=== PATIENT | female | born 1970 | race African-American/Black ===

== ENCOUNTER 2018-02-03 09:24 | Emergency (ER) | payer OTHER ==
[2018-02-03 10:26] LABS: NEGATIVE OBC STREP NEG; POSITIVE OBC STREP POS
== END 2018-02-03 11:00 | disposition home or self-care (01) ==
LOC: ER 11:00
DX: J02.8 Acute pharyngitis due to other specified organisms (principal); R51 Headache; E78.00 Pure hypercholesterolemia, unspecified; I10 Essential (primary) hypertension; E03.9 Hypothyroidism, unspecified; Z90.710 Acquired absence of both cervix and uterus; Z90.49 Acquired absence of other specified parts of digestive tract; Z88.1 Allergy status to other antibiotic agents
CPT/HCPCS: 87070; 87880; 99283

== ENCOUNTER → 2018-05-13 | Day surgery (SDC) | payer OTHER ==
[~2018-05-13] MED LIST: AMLO10TA6 PO; AMLO2.5T3 PO; AMOX1TAB11 PO; BENZ-8 PO; CRESTOR40 MG PO; DOXY100T PO; FAMO20TA5 PO; GUAI600T47 PO; IV RINGERS,LACTATED 1000ML 1,000 ML IV SCH; LABETALOL 20 MG/4 ML DISP.SYRIN. IVP ONE; LEVO25TA4 PO; LIDOCAINE 1% PF 2 ML VIAL. ID PRN; LISI-130 PO; LORA10TA68 PO; MIDAZOLAM HCL/PF 2 MG/2 ML VIAL. IV PRN; PRED20TA PO; PROPOFOL 20 ML IV ONE; PROPOFOL 40 ML IV ONE; RANI300C PO; TIZA4TAB PO; TOPI25TA52 PO; TRAM50TA PO; ZOLP5TAB PO; fentaNYL PF VIAL 100 MCG/2 ML VIAL IV PRN
[2018-05-13 08:01] VITALS: BP 152/78
--- NOTE | 2018-05-14 14:13 | PATHOLOGY ---
[facility] Accession Number: [id number] . 01 Material submitted: . BIOPSY DISTAL ESOPHAGUS . 01 Clinical history: . Bustos's esophagus, Hx change in bowel habits . 02 Diagnosis: Esophageal biopsies, distal esophagus: - Segments of hyperplastic squamous esophageal mucosa showing chronic inflammation, consistent with reflux esophagitis. (JPM:charlotte; 05/14/2018) QMS/05/14/2018 . 02 Comment: Sections of the distal esophageal biopsy reveal segments of tangentially oriented, hyperplastic squamous esophageal mucosa showing focal chronic inflammation with admixed eosinophils. The findings are consistent with reflux esophagitis. There is no evidence of Bustos's change, dysplasia, or malignancy. (JPM:charlotte; 05/14/2018) . 02 Electronically signed: . Wilder Estrada MD, Pathologist NPI- [id number] . 01 Gross description: . Received in formalin labeled "Karrie Sanchez, BX of esophagus, rule out dysplasia," are multiple segments of wilson soft tissue measuring 0.8 x 0.3 x 0.1 cm in aggregate dimensions. The specimen is filtered and entirely submitted in cassette A1. (TSD; 05/13/2018) TOB/TOB . 02 Pathologist provided ICD-10: K21.0 . 02 CPT . 251864 Specimen Comment: A courtesy copy of this report has been sent to Specimen Comment: [phone], . Specimen Comment: Report sent to / DR MAYES Specimen Comment: A duplicate report has been generated due to demographic updates. Performed at: [address], [place], [place] [id number] MD Abhilash De La Vega MD Phone: [phone] Performed at: 02 [facility] [address] [place] [id number] MD Wilder Estrada MD Phone: [phone]
== END | disposition home or self-care (01) ==
LOC: ENDOS 06:09
PROVIDERS: ATTEND Internal Medicine Gastroenterology
DX: K64.0 First degree hemorrhoids (principal); K22.70 Barrett's esophagus without dysplasia; G43.909 Migraine, unspecified, not intractable, without status migrainosus; I10 Essential (primary) hypertension; G47.30 Sleep apnea, unspecified; E03.9 Hypothyroidism, unspecified; F41.9 Anxiety disorder, unspecified; F32.9 Major depressive disorder, single episode, unspecified; M19.90 Unspecified osteoarthritis, unspecified site; K21.9 Gastro-esophageal reflux disease without esophagitis; Z80.8 Family history of malignant neoplasm of other organs or systems; Z80.1 Family history of malignant neoplasm of trachea, bronchus and lung; Z83.3 Family history of diabetes mellitus; Z82.49 Family history of ischemic heart disease and other diseases of the circulatory system; Z79.899 Other long term (current) drug therapy; Z90.49 Acquired absence of other specified parts of digestive tract; Z90.710 Acquired absence of both cervix and uterus; Z98.890 Other specified postprocedural states; Z98.51 Tubal ligation status; Z88.1 Allergy status to other antibiotic agents
CPT/HCPCS: 43239; 45378; 88305; J2704; J3490

== ENCOUNTER → 2018-05-27 | Outpatient (CLI) | payer OTHER ==
[2018-05-13 08:01] VITALS: BP 152/78
[~2018-05-27] MED LIST changes: -IV RINGERS,LACTATED 1000ML 1,000 ML IV SCH; -LABETALOL 20 MG/4 ML DISP.SYRIN. IVP ONE; -LIDOCAINE 1% PF 2 ML VIAL. ID PRN; -MIDAZOLAM HCL/PF 2 MG/2 ML VIAL. IV PRN; -PROPOFOL 20 ML IV ONE; -PROPOFOL 40 ML IV ONE; -fentaNYL PF VIAL 100 MCG/2 ML VIAL IV PRN
--- NOTE | 2018-05-27 10:08 | KCIC ---
Bilateral digital screening mammograms: Reason for examination: Routine screening. Comparison is made to previous study dated 10/13/2014. Interpretation was made with the benefit of CAD. The skin and nipples show no abnormalities. No abnormal axillary lymph nodes are seen. The breast parenchyma shows scattered fibroglandular density. (Breast density: Category B.) There are no dominant masses, suspicious calcifications or architectural distortions. Impression: No evidence of malignancy. Recommend routine screening. BI-RADS Category 1: Negative. "Our facility is accredited by the [employer] Mammography Program." This patient's information has been entered into a reminder system for the patient to be notified with the results of her examination and a target date for the next mammogram. Electronically signed by: Veronica Archer MD (05/27/2018 10:04 AM) [id number]
== END | disposition home or self-care (01) ==
LOC: KCIC MAMMO 09:02
PROVIDERS: ATTEND Family Medicine
DX: Z12.31 Encounter for screening mammogram for malignant neoplasm of breast (principal)
CPT/HCPCS: 77067

== ENCOUNTER → 2018-06-08 | Outpatient (CLI) | payer OTHER ==
[2018-05-13 08:01] VITALS: BP 152/78
--- NOTE | 2018-06-08 11:26 | KCIC ---
SMALL BOWEL SERIES History: Chronic generalized abdominal pain greater on the right Comparison: None. Findings: Small bowel examination was performed. Overall caliber of the small bowel is within normal limits. There was normal transit of the contrast through the small bowel, seen in the colon at about 90 minutes. On spot compression images, there is some persistent wall irregularity of the terminal ileum. Appendix is not visualized. Fluoroscopy time: 54 seconds, 3 images Impression: 1. There is some persistent wall irregularity of the terminal ileum, could be associated with terminal ileitis, less commonly mass. Electronically signed by: Eliel Barros MD (06/08/2018 11:22 AM) [facility]
== END | disposition home or self-care (01) ==
LOC: KCIC 08:34
PROVIDERS: ATTEND Internal Medicine Gastroenterology
DX: R10.84 Generalized abdominal pain (principal); G89.29 Other chronic pain
CPT/HCPCS: 74250

== ENCOUNTER 2020-01-10 11:13 | Emergency (ER) | payer OTHER ==
[~2020-01-10] VITALS: Ht 160 cm; Wt 131.8 kg
[~2020-01-10 11:13] MED LIST changes: -AMLO10TA6 PO; +AMLO10TA8 PO; -AMLO2.5T3 PO; +AMLO2.5T5 PO; -TIZA4TAB PO; +TIZA4TAB2 PO
[2020-01-10] MEDS ORDERED: KETOROLAC 15 MG/ML VIAL. IVP ONE (11:30)
[2020-01-10] MEDS ORDERED: ONDANSETRON PF 4 MG/2 ML VIAL. IVP ONE (11:30)
[2020-01-10] MEDS ORDERED: FAMOTIDINE 20 MG/2 ML VIAL IVP ONE (11:30)
[2020-01-10] MEDS ORDERED: IV NORMAL SALINE 1000ML BAG 1,000 ML IV ONE (11:30)
[2020-01-10 11:59] LABS: BASO # 0.1 x10^3/uL (0.0-0.2); BASO % 1 % (0-3); EOS # 0.1 x10^3/uL (0.0-0.7); EOS % 1 % (0-3); HEMATOCRIT 38.4 % (36.0-47.0); HEMOGLOBIN 13.1 g/dL (12.0-15.5); LYMPH # 1.8 x10^3/uL (1.0-4.8); LYMPH % 28 % (24-48); MEAN CORPUSCULAR HEMOGLOBIN 30 pg (25-35); MEAN CORPUSCULAR HGB CONC 34 g/dL (31-37); MEAN CORPUSCULAR VOLUME 89 fL (79-100); MONO # 0.6 x10^3/uL (0.0-1.1); MONO % 9 % (0-9); NEUT % 62 % (31-73); PLATELET COUNT 314 x10^3/uL (140-400); RED BLOOD COUNT 4.32 x10^6/uL (3.50-5.40); RED CELL DISTRIBUTION WIDTH 14.2 % (11.5-14.5); WHITE BLOOD COUNT 6.5 x10^3/uL (4.0-11.0)
[2020-01-10 12:01] LABS: BILIRUBIN,URINE NEGATIVE (NEG); CLARITY,URINE CLEAR; COLOR,URINE YELLOW; NITRITE,URINE NEGATIVE (NEG); PH,URINE 5.5 (<5.0-8.0); PROTEIN,URINE 30 mg/dL (NEG-TRACE)
--- NOTE | 2020-01-10 12:06 | EKG ---
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
[2020-01-10 12:09] LABS: BACTERIA,URINE MODERATE /HPF (0-FEW); SQUAMOUS EPITHELIAL CELL,UR MANY /LPF; WBC,URINE OCC /HPF (0-4)
[2020-01-10 12:10] LABS: RBC,URINE OCC /HPF (0-2)
[2020-01-10 12:11] LABS: PROTHROMBIN TIME PATIENT 12.2 SEC (11.7-14.0)
[2020-01-10 12:12] LABS: CALCIUM 8.7 mg/dL (8.5-10.1); CREATININE 1.2 mg/dL (0.6-1.0); GFR 57.3; POTASSIUM 3.7 mmol/L (3.5-5.1)
[2020-01-10 12:27] LABS: ALBUMIN 3.4 g/dL (3.4-5.0); ALBUMIN/GLOBULIN RATIO 0.8 (1.0-1.7); MAGNESIUM 1.5 mg/dL (1.8-2.4); TOTAL BILIRUBIN 0.3 mg/dL (0.2-1.0); TOTAL PROTEIN 7.9 g/dL (6.4-8.2)
[2020-01-10 12:28] LABS: CREATINE KINASE 125 U/L (26-192)
--- NOTE | 2020-01-10 12:28 | PHYS DOC ---
Past Medical History Past Medical History: Arthritis, GERD, High Cholesterol, Hypertension, Hypothyroid, Migraines, Pneumonia, Other Past Surgical History: Cholecystectomy, , Hysterectomy, Other Additional Past Surgical Histo: bladder;rectum;L ankle,BLADDER LIFT,CYST REMOVED ANKLE/EAR Smoking Status: Never Smoker Alcohol Use: Occasionally Drug Use: None General Adult EDM: Chief Complaint: ABDOMINAL PAIN HPI: HPI: Patient is a 49 year old female presents with report of right lower quadrant abdominal pain that awoke patient this morning. Patient denies associated nausea, vomiting, diarrhea. Denies flank pain, hematuria, or dysuria. Denies trauma. Reports has gone through menopause. Denies fever or chills. Denies rash. Review of Systems: Review of Systems: Constitutional: Denies fever or chills Eyes: Denies redness or eye pain HENT: Denies nasal congestion or sore throat Respiratory: Denies cough or shortness of breath Cardiovascular: Denies chest pain or palpitations GI: Reports right lower quadrant abdominal pain; denies nausea or vomiting : Denies dysuria or hematuria Musculoskeletal: Denies back pain or joint pain Integument: Denies rash or skin lesions Neurologic: Denies headache, focal weakness or sensory changes Complete systems were reviewed and found to be within normal limits, except as documented in this note. Current Medications: Current Medications Medications (Trade) Dose Ordered Sig/Maged Start Time Stop Time Status Last Admin Dose Admin Famotidine (Pepcid Vial) 20 mg 1X ONCE 01/10/20 11:30 01/10/20 11:32 DC 01/10/20 11:55 20 MG Fentanyl Citrate (Fentanyl 2ml Vial) 50 mcg 1X ONCE 01/10/20 12:30 01/10/20 12:31 UNV Ketorolac Tromethamine (Toradol 15mg Vial) 15 mg 1X ONCE 01/10/20 11:30 01/10/20 11:32 DC 01/10/20 11:55 15 MG Ondansetron HCl (Zofran) 4 mg 1X ONCE 01/10/20 11:30 01/10/20 11:32 DC 01/10/20 11:55 4 MG Sodium Chloride 1,000 ml @ 1,000 mls/hr 1X ONCE 01/10/20 11:30 01/10/20 12:29 01/10/20 11:55 1,000 MLS/HR Allergies: Allergies: Allergies Coded Allergies Type Severity Reaction Last Updated Verified ciprofloxacin Allergy Severe Rash 05/13/18 No Physical Exam: PE: Constitutional: Well developed, well nourished, no acute distress, non-toxic appearance HENT: Normocephalic, atraumatic Eyes: Conjunctiva normal, no discharge Neck: Normal range of motion, no tenderness, supple Lungs & Thorax: No respiratory distress, equal chest rise and fall Abdomen: Soft, RLQ tenderness, no guarding/distention/rebound tenderness Skin: Warm, dry, no erythema, no rash Back: No tenderness, no CVA tenderness Extremities: No tenderness, ROM intact, no edema Neurologic: Alert and oriented X 3, no focal deficits noted Psychologic: Affect normal, judgment normal Current Patient Data: Labs: Laboratory Tests Test 01/10/20 11:46 White Blood Count 6.5 x10^3/uL (4.0-11.0) Red Blood Count 4.32 x10^6/uL (3.50-5.40) Hemoglobin 13.1 g/dL (12.0-15.5) Hematocrit 38.4 % (36.0-47.0) Mean Corpuscular Volume 89 fL (79-100) Mean Corpuscular Hemoglobin 30 pg (25-35) Mean Corpuscular Hemoglobin Concent 34 g/dL (31-37) Red Cell Distribution Width 14.2 % (11.5-14.5) Platelet Count 314 x10^3/uL (140-400) Neutrophils (%) (Auto) 62 % (31-73) Lymphocytes (%) (Auto) 28 % (24-48) Monocytes (%) (Auto) 9 % (0-9) Eosinophils (%) (Auto) 1 % (0-3) Basophils (%) (Auto) 1 % (0-3) Neutrophils # (Auto) 4.0 x10^3/uL (1.8-7.7) Lymphocytes # (Auto) 1.8 x10^3/uL (1.0-4.8) Monocytes # (Auto) 0.6 x10^3/uL (0.0-1.1) Eosinophils # (Auto) 0.1 x10^3/uL (0.0-0.7) Basophils # (Auto) 0.1 x10^3/uL (0.0-0.2) Prothrombin Time 12.2 SEC (11.7-14.0) Prothrombin Time INR 0.9 (0.8-1.1) Activated Partial Thromboplast Time 29 SEC (24-38) Urine Collection Type Unknown Urine Color Yellow Urine Clarity Clear Urine pH 5.5 (<5.0-8.0) Urine Specific [place] 1.020 (1.000-1.030) Urine Protein 30 mg/dL (NEG-TRACE) Urine Glucose (UA) Negative mg/dL (NEG) Urine Ketones (Stick) Trace mg/dL (NEG) Urine Blood Trace (NEG) Urine Nitrite Negative (NEG) Urine Bilirubin Negative (NEG) Urine Urobilinogen Dipstick 1.0 mg/dL (0.2 mg/dL) Urine Leukocyte Esterase Negative (NEG) Urine RBC Occ /HPF (0-2) Urine WBC Occ /HPF (0-4) Urine Squamous Epithelial Cells Many /LPF Urine Bacteria Moderate /HPF (0-FEW) Sodium Level 139 mmol/L (136-145) Potassium Level 3.7 mmol/L (3.5-5.1) Chloride Level 104 mmol/L (98-107) Carbon Dioxide Level 24 mmol/L (21-32) Anion Gap 11 (6-14) Blood Urea Nitrogen 12 mg/dL (7-20) Creatinine 1.2 mg/dL (0.6-1.0) H Estimated GFR (Cockcroft-Gault) 57.3 BUN/Creatinine Ratio 10 (6-20) Glucose Level 117 mg/dL (70-99) H Calcium Level 8.7 mg/dL (8.5-10.1) Magnesium Level Pending Total Bilirubin Pending Aspartate Amino Transferase (AST) Pending Alanine Aminotransferase (ALT) Pending Alkaline Phosphatase Pending Troponin I Quantitative < 0.017 ng/mL (0.000-0.055) Total Protein Pending Albumin Pending Albumin/Globulin Ratio Pending Lipase Pending Laboratory Tests 01/10/20 11:46 Laboratory Tests 01/10/20 11:46 Vital Signs: Vital Signs Date Time Temp Pulse Resp B/P (MAP) Pulse Ox O2 Delivery O2 Flow Rate FiO2 01/10/20 11:17 98.9 94 19 209/104 (139) 98 Room Air 98.9 EKG: EKG: @1125 NSR at 95bpm, NO ST elevation, QRS 92ms, QT/QTc 356/451ms Radiology/Procedures: Radiology/Procedures: PROCEDURE: CT ABD PELV W/ IV CONTRST ONLY CT abdomen pelvis with contrast. HISTORY: Right lower quadrant abdominal pain CT abdomen and pelvis CT scan the abdomen pelvis was done using 60 mL Omnipaque 300 contrast. There is mild atelectasis in the lung bases without other infiltrates. There is no effusion. There is diffuse fatty change in the liver. Patient's had a cholecystectomy. Spleen and adrenal glands are normal. Pancreas is normal. There is no mass or hydronephrosis in the kidneys. There is no retroperitoneal adenopathy. There is moderate stool in the colon. There is no free air. There is no free fluid. Appendix is normal. Patient's had a hysterectomy. There is no bowel obstruction. There is mild facet arthritis in the lumbar spine. There is no spinal stenosis. IMPRESSION: 1. Normal appendix. 2. Diffuse fatty change in the liver. 3. No bowel obstruction. 4. No other acute finding in the abdomen or pelvis. PQRS Compliance Statement: One or more of the following individualized dose reduction techniques were utilized for this examination: 1. Automated exposure control 2. Adjustment of the mA and/or kV according to patient size 3. Use of iterative reconstruction technique Electronically signed by: Jeremy Alves MD (01/10/2020 12:51 PM) [id number] Course & Med Decision Making: Course & Med Decision Making Pertinent Labs and Imaging studies reviewed. (See chart for details) Patient presents with right lower quadrant abdominal pain that awoke her from sleep this morning. No other associated symptoms reported. Abdomen non- peritoneal. Patient does have some tenderness to right lower quadrant. Patient noted to have elevated blood pressure. Patient reports she forgot to take her medication for her blood pressure this morning. Pain addressed. IV fluid hydration given. Labs obtained and posted to chart. EKG stable. CT abdomen/pelvis without acute process. Patient stable for discharge with outpatient follow-up with PCP/GI. GI referral provided. Discussed findings and plan with patient, who acknowledges und erstanding and agreement. Amanda Disclaimer: Amanda Disclaimer: This electronic medical record was generated, in whole or in part, using a voice recognition dictation system. Departure Departure Impression: Primary Impression: Abdominal pain Qualified Codes: R10.31 - Right lower quadrant pain Additional Impressions: Hypomagnesemia Hypertension Qualified Codes: I10 - Essential (primary) hypertension Disposition: 01 HOME, SELF-CARE Condition: STABLE Referrals: CINTIA MAYES MD (PCP) PRUDENCIO MCCALLUM MD Patient Instructions: Abdominal Pain (Nonspecific), Hypertension, [id number], Hypomagnesemia Scripts Hyoscyamine Sulfate (LEVSIN-SL) 0.125 Mg Tab.subl 0.125 MG SL Q4-6HRS PRN for PAIN, #14 TAB Prov: CINTIA BURROUGHS DO 01/10/20 Famotidine (PEPCID) 20 Mg Tablet 20 MG PO BID for 5 Days, #10 TAB Prov: CINTIA BURROUGHS DO 01/10/20 Ondansetron (ONDANSETRON ODT) 4 Mg Tab.rapdis 1 TAB PO PRN Q6-8HRS PRN for NAUSEA, #16 TAB Prov: CINTIA BURROUGHS DO 01/10/20 Justicifation of Admission Dx: Justifications for Admission: Justification of Admission Dx: N/A CINTIA BURROUGHS DO Jan 10, 2020 12:28
[2020-01-10] MEDS ORDERED: fentaNYL PF VIAL 100 MCG/2 ML VIAL IVP ONE (12:30)
[2020-01-10] MEDS ORDERED: IOHEXOL 300 MG/ML 100ML VIAL. IV ONE (12:30)
[2020-01-10] MEDS ORDERED: CONTRAST GIVEN. MC PRN (12:30)
[2020-01-10] MEDS ORDERED: LABETALOL 20 MG/4 ML DISP.SYRIN. IVP ONE (12:45)
--- NOTE | 2020-01-10 12:54 | RAD ---
CT abdomen pelvis with contrast. HISTORY: Right lower quadrant abdominal pain CT abdomen and pelvis CT scan the abdomen pelvis was done using 60 mL Omnipaque 300 contrast. There is mild atelectasis in the lung bases without other infiltrates. There is no effusion. There is diffuse fatty change in the liver. Patient's had a cholecystectomy. Spleen and adrenal glands are normal. Pancreas is normal. There is no mass or hydronephrosis in the kidneys. There is no retroperitoneal adenopathy. There is moderate stool in the colon. There is no free air. There is no free fluid. Appendix is normal. Patient's had a hysterectomy. There is no bowel obstruction. There is mild facet arthritis in the lumbar spine. There is no spinal stenosis. IMPRESSION: 1. Normal appendix. 2. Diffuse fatty change in the liver. 3. No bowel obstruction. 4. No other acute finding in the abdomen or pelvis. PQRS Compliance Statement: One or more of the following individualized dose reduction techniques were utilized for this examination: 1. Automated exposure control 2. Adjustment of the mA and/or kV according to patient size 3. Use of iterative reconstruction technique Electronically signed by: Jeremy Alves MD (01/10/2020 12:51 PM) [id number]
[2020-01-10] MEDS ORDERED: ONDA4TAB12 PO (13:29)
[2020-01-10] MEDS ORDERED: FAMO-63 PO (13:29)
[2020-01-10] MEDS ORDERED: HYOS0.1265 SL (13:29)
[2020-01-10 13:43] VITALS: BP 191/91
[2020-01-10] MEDS ORDERED: MAGNESIUM CHLORIDE ER 64 MG TABLET.ER PO ONE (14:00)
== END 2020-01-10 13:51 | disposition home or self-care (01) ==
LOC: ER 11:13
DX: I10 Essential (primary) hypertension (principal); R10.31 Right lower quadrant pain; E83.42 Hypomagnesemia; M19.90 Unspecified osteoarthritis, unspecified site; K21.9 Gastro-esophageal reflux disease without esophagitis; E78.00 Pure hypercholesterolemia, unspecified; E03.9 Hypothyroidism, unspecified; G43.909 Migraine, unspecified, not intractable, without status migrainosus; Z90.49 Acquired absence of other specified parts of digestive tract; Z90.710 Acquired absence of both cervix and uterus; Z98.890 Other specified postprocedural states
CPT/HCPCS: 36415; 74177; 80053; 81001; 82553; 83690; 83735; 84484; 85025; 85610; 85730; 87086; 93005; 96374; 96375; 99285; J1885; J2405; J3010; J3490; J7030; Q9967

== ENCOUNTER 2021-02-16 13:36 | Emergency (ER) | payer OTHER ==
[~2021-02-16] VITALS: Ht 167.6 cm; Wt 150.0 kg
[~2021-02-16 13:36] MED LIST changes: +AMLO-187 PO; -AMLO10TA8 PO; +FAMO-63 PO; +HYOS0.1265 SL; +ONDA4TAB12 PO
[2021-02-16] MEDS ORDERED: KETOROLAC 30 MG/ML VIAL. IVP ONE (15:00)
[2021-02-16] MEDS ORDERED: CYCLOBENZAPRINE 10 MG TABLET. PO ONE (15:00)
[2021-02-16 15:06] LABS: BASO # 0.1 x10^3/uL (0.0-0.2); BASO % 1 % (0-3); EOS # 0.1 x10^3/uL (0.0-0.7); EOS % 1 % (0-3); HEMATOCRIT 40.3 % (36.0-47.0); HEMOGLOBIN 13.7 g/dL (12.0-15.5); LYMPH # 1.5 x10^3/uL (1.0-4.8); LYMPH % 17 % (24-48); MEAN CORPUSCULAR HEMOGLOBIN 31 pg (25-35); MEAN CORPUSCULAR HGB CONC 34 g/dL (31-37); MEAN CORPUSCULAR VOLUME 90 fL (79-100); MONO # 0.6 x10^3/uL (0.0-1.1); MONO % 7 % (0-9); NEUT # 6.6 x10^3/uL (1.8-7.7); NEUT % 74 % (31-73); PLATELET COUNT 302 x10^3/uL (140-400); RED BLOOD COUNT 4.49 x10^6/uL (3.50-5.40); RED CELL DISTRIBUTION WIDTH 13.7 % (11.5-14.5)
--- NOTE | 2021-02-16 15:10 | RAD ---
Single AP view of the chest. Comparison: 02/15/2018. Indication: Chest pain Findings: The heart is not enlarged. There is no pneumothorax or effusion. No air space or interstitial diseas e. Impression: 1. No acute cardiopulmonary process. Electronically signed by: Kg Soria MD (02/16/2021 3:07 PM) [facility]
[2021-02-16 15:24] LABS: CALCIUM 9.3 mg/dL (8.5-10.1); CREATININE 1.1 mg/dL (0.6-1.0); GFR 63.1; POTASSIUM 4.1 mmol/L (3.5-5.1)
[2021-02-16 15:30] LABS: ALBUMIN 3.4 g/dL (3.4-5.0); ALBUMIN/GLOBULIN RATIO 0.8 (1.0-1.7); MAGNESIUM 1.9 mg/dL (1.8-2.4); PHOSPHORUS 2.4 mg/dL (2.6-4.7); TOTAL BILIRUBIN 0.6 mg/dL (0.2-1.0); TOTAL PROTEIN 7.9 g/dL (6.4-8.2)
--- NOTE | 2021-02-16 15:36 | EKG ---
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
[2021-02-16 20:13] LABS: BILIRUBIN,URINE NEGATIVE (NEG); CLARITY,URINE CLEAR; COLOR,URINE YELLOW; NITRITE,URINE NEGATIVE (NEG); PROTEIN,URINE NEGATIVE (NEG-TRACE); UROBILINOGEN,URINE 0.2 mg/dL (0.2 mg/dL)
[2021-02-16 20:20] LABS: BACTERIA,URINE MANY /HPF (0-FEW); RBC,URINE 0 /HPF (0-2)
[2021-02-16 21:02] VITALS: BP 157/75
--- NOTE | 2021-02-16 21:11 | PHYS DOC ---
Past Medical History Past Medical History: Arthritis, GERD, High Cholesterol, Hypertension, Hypothyroid, Migraines, Pneumonia, Other Additional Past Medical Histor: pt not taking meds for yrs-On02/03/18 since last ED visit pt. (CINTIA CHRISTIANSON APRN) Past Surgical History: Cholecystectomy, , Hysterectomy, Other Additional Past Surgical Histo: bladder;rectum;L ankle,BLADDER LIFT,CYST REMOVED ANKLE/EAR (CINTIA CHRISTIANSON APRN) Smoking Status: Never Smoker Alcohol Use: Occasionally Drug Use: None (CINTIA CHRISTIANSON APRN) General Adult EDM: Chief Complaint: SHORTNESS OF BREATH HPI: HPI: Patient is a 50 year old female presents to the emergency department complaining of chest pain or shortness of breath that has been going on for the past 5 weeks. Patient states she has been taking muscle relaxers prescribed to her by Dr. Butler, patient states she is supposed to take medications for hypertension and type 2 diabetes but has not stating that she just does not feel like taking those medications. Patient reports her last menstrual cycle was last with normal directional flow. Reports an allergy to Cipro. Denies nausea, vomiting, diarrhea, abdominal pain, urinary tract infection type signs and symptoms, denies vaginal discharge, pelvic pain, or STI concerns. Patient denies increased thirst or increased urination, denies rashes to her skin, denies recent fever or chills. Denies any other physical complaints or physical concerns. (CINTIA CHRISTIANSON APRN) Review of Systems: Review of Systems: 14 body systems of review of systems have been reviewed. See HPI for pertinent positives and negative responses, otherwise all other systems are negative, nonpertinent or noncontributory. Constitutional: Negative except as outlined in HPI above. Skin: Negative except as outlined in HPI above. Eyes: Negative except as outlined in HPI above. HENT: Negative except as outlined in HPI above. Respiratory: Negative except as outlined in HPI above. Cardiovascular: Negative except as outlined in HPI above. GI: Negative except as outlined in HPI above. : Negative except as outlined in HPI above. Musculoskeletal: Negative except as outlined in HPI above. Integument: Negative except as outlined in HPI above. Neurologic: Negative except as outlined in HPI above. Endocrine: Negative except as outlined in HPI above. Lymphatic: Negative except as outlined in HPI above. Psychiatric: Negative except as outlined in HPI above. (CINTIA CHRISTIANSON APRN) Heart Score: C/O Chest Pain: Yes HEART Score for Chest Pain: HEART Score for Chest Pain Response (Comments) Value History Slighlty/Non-Suspicious 0 ECG Normal 0 Age >45 - < 65 1 Risk Factors 1 or 2 Risk Factors 1 Troponin < Normal Limit 0 Total 2 Risk Factors: Risk Factors: DM, Current or recent (<one month) smoker, HTN, HLP, family history of CAD, obesity. Risk Scores: Score 0 - 3: 2.5% MACE over next 6 weeks - Discharge Home Score 4 - 6: 20.3% MACE over next 6 weeks - Admit for Clinical Observation Score 7 - 10: 72.7% MACE over next 6 weeks - Early Invasive Strategies (CINTIA CHRISTIANSON APRN) Current Medications: Current Medications Medications (Trade) Dose Ordered Sig/Maged Start Time Stop Time Status Last Admin Dose Admin Cyclobenzaprine HCl (Flexeril) 10 mg 1X ONCE 02/16/21 15:00 02/16/21 15:01 DC 02/16/21 15:51 10 MG Ketorolac Tromethamine (Toradol 30mg Vial) 30 mg 1X ONCE 02/16/21 15:00 02/16/21 15:01 DC 02/16/21 15:52 30 MG (CINTIA CHRISTIANSON APRN) Allergies: Allergies: Allergies Coded Allergies Type Severity Reaction Last Updated Verified ciprofloxacin Allergy Severe Rash 05/13/18 No (CINTIA CHRISTIANSON APRN) Physical Exam: PE: Constitutional: Well developed, well nourished, no acute distress, non-toxic appearance. 50-year-old female in no apparent distress. HENT: Normocephalic, atraumatic. Eyes: Conjunctiva normal, no discharge. Neck: Normal range of motion, no stridor. Cardiovascular: No cyanosis appreciated, distal cap refill less than 2 seconds. Heart sounds S1-S2 to auscultation, regular rate and rhythm. No murmur appreciated, PMI to the right. Lungs & Thorax: Patient is in no respiratory distress, no audible adventitious lung sounds appreciated. No pain to palpation of the anterior thorax, lung sounds clear to auscultation all lung wise. Abdomen: Nontender, no abnormalities noted. Skin: Warm, dry, no erythema, no rash. Back: No tenderness, no deformities. Extremities: No tenderness, no cyanosis, no clubbing, ROM intact, no edema. Neurologic: Alert and oriented X 3, normal motor function, normal sensory function, no focal deficits noted. Psychologic: Affect normal, judgement normal, mood normal. (CINTIA CHRISTIANSON APRN) Current Patient Data: Labs: Laboratory Tests Test 02/16/21 14:55 02/16/21 19:50 White Blood Count 9.0 x10^3/uL (4.0-11.0) Red Blood Count 4.49 x10^6/uL (3.50-5.40) Hemoglobin 13.7 g/dL (12.0-15.5) Hematocrit 40.3 % (36.0-47.0) Mean Corpuscular Volume 90 fL (79-100) Mean Corpuscular Hemoglobin 31 pg (25-35) Mean Corpuscular Hemoglobin Concent 34 g/dL (31-37) Red Cell Distribution Width 13.7 % (11.5-14.5) Platelet Count 302 x10^3/uL (140-400) Neutrophils (%) (Auto) 74 % (31-73) H Lymphocytes (%) (Auto) 17 % (24-48) L Monocytes (%) (Auto) 7 % (0-9) Eosinophils (%) (Auto) 1 % (0-3) Basophils (%) (Auto) 1 % (0-3) Neutrophils # (Auto) 6.6 x10^3/uL (1.8-7.7) Lymphocytes # (Auto) 1.5 x10^3/uL (1.0-4.8) Monocytes # (Auto) 0.6 x10^3/uL (0.0-1.1) Eosinophils # (Auto) 0.1 x10^3/uL (0.0-0.7) Basophils # (Auto) 0.1 x10^3/uL (0.0-0.2) Sodium Level 139 mmol/L (136-145) Potassium Level 4.1 mmol/L (3.5-5.1) Chloride Level 105 mmol/L (98-107) Carbon Dioxide Level 25 mmol/L (21-32) Anion Gap 9 (6-14) Blood Urea Nitrogen 15 mg/dL (7-20) Creatinine 1.1 mg/dL (0.6-1.0) H Estimated GFR (Cockcroft-Gault) 63.1 BUN/Creatinine Ratio 14 (6-20) Glucose Level 100 mg/dL (70-99) H Calcium Level 9.3 mg/dL (8.5-10.1) Phosphorus Level 2.4 mg/dL (2.6-4.7) L Magnesium Level 1.9 mg/dL (1.8-2.4) Total Bilirubin 0.6 mg/dL (0.2-1.0) Aspartate Amino Transferase (AST) 27 U/L (15-37) Alanine Aminotransferase (ALT) 33 U/L (14-59) Alkaline Phosphatase 91 U/L (46-116) Troponin I Quantitative < 0.017 ng/mL (0.000-0.055) Total Protein 7.9 g/dL (6.4-8.2) Albumin 3.4 g/dL (3.4-5.0) Albumin/Globulin Ratio 0.8 (1.0-1.7) L Urine Collection Type Unknown Urine Color Yellow Urine Clarity Clear Urine pH 6.0 (<5.0-8.0) Urine Specific [place] 1.015 (1.000-1.030) Urine Protein Negative mg/dL (NEG-TRACE) Urine Glucose (UA) Negative mg/dL (NEG) Urine Ketones (Stick) Trace mg/dL (NEG) Urine Blood Negative (NEG) Urine Nitrite Negative (NEG) Urine Bilirubin Negative (NEG) Urine Urobilinogen Dipstick 0.2 mg/dL (0.2 mg/dL) Urine Leukocyte Esterase Small (NEG) Urine RBC 0 /HPF (0-2) Urine WBC 5-10 /HPF (0-4) Urine Squamous Epithelial Cells Many /LPF Urine Bacteria Many /HPF (0-FEW) Urine Mucus Mod /LPF Laboratory Tests 02/16/21 14:55 Laboratory Tests 02/16/21 14:55 Vital Signs: Vital Signs Date Time Temp Pulse Resp B/P (MAP) Pulse Ox O2 Delivery O2 Flow Rate FiO2 02/16/21 18:02 85 20 176/85 (115) 100 Room Air 02/16/21 14:42 98.5 98.5 (CINTIA CHRISTIANSON APRN) EKG: EKG: EKG performed at 1431 by ED nursing staff shows a normal sinus rhythm without other ectopy heart rate 92 bpm, [place] interval 0.164, QTc interval 0.448, no acute STEMI, no ischemia appreciated, no ACS, EKG interpreted by ED attending physician Dr. Mckinney. (CINTIA CHRISTIANSON APRN) Radiology/Procedures: Radiology/Procedures: PATIENT: MANUEL BHARDWAJ ACCOUNT: [id number] : 1970 LOCATION: ER AGE: 50 SEX: F EXAM STATUS: PRE ER ORD. PHYSICIAN: CINTIA CHRISTIANSON APRN REASON: CHEST PAIN PROCEDURE: CHEST AP ONLY Single AP view of the chest. Comparison: 02/15/2018. Indication: Chest pain Findings: The heart is not enlarged. There is no pneumothorax or effusion. No air space or interstitial disease. Impression: 1. No acute cardiopulmonary process. Electronically signed by: Kg Soria MD (02/16/2021 3:07 PM) [facility] DICTATED and SIGNED BY: KG SORIA MD DATE: 02/16/21 [id number] 0 (CINTIA CHRISTIANSON APRN) Course & Med Decision Making: Course & Med Decision Making Pertinent Labs and Imaging studies reviewed. (See chart for details) 50-year-old female, vital signs reviewed, presents emergency department chief complaint of chest pain or shortness of breath for the past 5 weeks. Physical examination nonconcerning, symptoms may be related to patient's noncompliance of hypertension and type 2 diabetes medications. Will order cardiopulmonary work- up. The patient's urine was not infected, did have leukocyte esterase however most likely contaminated related to many squamous epithelia, no white blood cells, no red blood cells. The patient was not . The patient's chest x-ray unremarkable, HEART score of 2. The patient's lab work unremarkable. Upon reexamination of the patient, the patient remains nontoxic in appearance and in no apparent distress. The patient states she no longer has chest pain or shortness of breath. Discussed findings with patient and need for follow-up with primary care for ongoing symptoms. Discussed with patient need to continue her blood pressure and type 2 diabetes regimen. Discussed with the patient all findings and diagnostic testing as well as the need to follow-up with their primary care provider for further evaluation and treatment or return to the ED if any new or worsening symptoms. Strict return precautions were also discussed at length, the patient voiced understanding and agreement with the discharge planning. The patient was nontoxic in appearance, in no apparent distress, and hemodynamically stable at the time of disposition. (CINTIA CHRISTIANSON APRN) Dragon Disclaimer: Dragon Disclaimer: This electronic medical record was generated, in whole or in part, using a voice recognition dictation system. (CINTIA CHRISTIANSON APRN) Departure Departure Impression: Primary Impression: Shortness of breath Additional Impression: Chest pain of unknown etiology Disposition: HOME / SELF CARE / HOMELESS Condition: GOOD Referrals: CINTIA BUTLER MD (PCP) Patient Instructions: Chest Pain (Nonspecific), Shortness of Breath Additional Instructions: You were seen today in the emergency department for chest pain and shortness of breath. An extensive cardiorespiratory work-up was performed today in the emergency department. There were no concerning findings. Your chest x-ray was within normal limits. Your EKG did not show any concerning findings. However, this does not mean nothing is wrong. As we discussed, please follow-up with your primary care physician this Friday for ongoing assessment and treatment for your chest pains and shortness of breath. You had indicated that you do not take your high blood pressure and type 2 diabetes medications at home as you should. This can cause lifelong physical problems that may become irreversible. I urged you to discuss with your primary care physician your options for treatment. Thank you for visiting our Emergency Department. It was a pleasure taking care of you today in the emergency department and we appreciate you trusting us with your care. If any additional problems come up don't hesitate to return to visit us. Please follow up with your primary care provider so they can plan additional care if needed and know about the problem that you had. If symptoms worsen come back to the Emergency Department. Any concerning symptoms that start such as chest pain, shortness of air, weakness or numbness on one side of the body, running high fevers or any other concerning symptoms return to the ER. EMERGENCY DEPARTMENT GENERAL DISCHARGE INSTRUCTIONS Thank you for coming to [facility] Emergency Department (ED) today and trusting us with you care. We trust that you had a positive experience in our Emergency Department. If you wish to speak to the department management, you may call the Director at [phone]. YOUR FOLLOW UP INSTRUCTIONS ARE FOLLOWS: 1. Do you have a private Doctor? If you do not have a private doctor, please ask for a resource list of physicians or clinics that may be able to assist you with follow up care. 2. The Emergency Physicain has interpreted your x-rays. The X-Ray specialist will also review them. If there is a change in the findings, you will be notified in 48 hours when at all possible. 3. A lab test or culture has been done, your results will be reviewed and you will be notified if you need a change in treatment. ADDITIONAL INSTRUCTIONS AND INFORMATION: 1. Your care today has been supervised by a physician who is specially trained in emergency care. Many problems require more than one evaluation for a complete diagnosis and treatment. We recommend that you schedule your follow up appointment as recommended to ensure complete treatment of you illness or injury. If you are unable to obtain follow up care and continue to have a problem, or if your condition worsens, we recommend that you return to the ED. 2. We are not able to safely determine your condition over the phone nor are we able to give sound medical advice over the phone. For these safety reasons, if you call for medical advice we will ask you to come to the ED for further evaluation. 3. If you have any questions regarding these discharge instructions please call the ED at [phone]. SAFETY INFORMATION: In the interest of safety, wellness, and injury prevention; we encourage you to wear your sealbelt, if you smoke; quite smoking, and we encourage family to use a protective helmet for bicycling and other sporting events that present an increased risk for head injury. IF YOUR SYMPTOMS WORSEN OR NEW SYMPTOMS DEVELOP, OR YOU HAVE CONCERNS ABOUT YOUR CONDITION; OR IF YOUR CONDITION WORSENS WHILE YOU ARE WAITING FOR YOUR FOLLOW UP APPOINTMENT; EITHER CONTACT YOUR PRIMARY CARE DOCTOR, THE PHYSICIAN WHOSE NAME AND NUMBER YOU WERE GIVEN, OR RETURN TO THE ED IMMEDIATELY. Attending Signature Attending Signature I have reviewed the PA/MORTGAGE COORDINATOR's note and plan of care. I was available for consultation as needed during the patient's visit in the emergency department. I agree with the clinical impression, plan, and disposition. (CINTIA BURROUGHS DO) CINTIA CHRISTIANSON APRN Feb 16, 2021:11 CINTIA BURROUGHS DO Feb 17, 2021 18:27
== END 2021-02-16 21:31 | disposition home or self-care (01) ==
LOC: ER 13:36
DX: R07.9 Chest pain, unspecified (principal); R06.02 Shortness of breath; M19.90 Unspecified osteoarthritis, unspecified site; K21.9 Gastro-esophageal reflux disease without esophagitis; E78.00 Pure hypercholesterolemia, unspecified; I10 Essential (primary) hypertension; E03.9 Hypothyroidism, unspecified; G43.909 Migraine, unspecified, not intractable, without status migrainosus; Z90.49 Acquired absence of other specified parts of digestive tract; Z90.710 Acquired absence of both cervix and uterus; Z98.890 Other specified postprocedural states; Z88.1 Allergy status to other antibiotic agents
CPT/HCPCS: 36415; 71045; 80053; 81001; 83735; 84100; 84484; 85025; 87086; 93005; 96374; 99285; J1885